=== PATIENT | female | born 1965 | race Caucasian/White ===

== ENCOUNTER → 2017-04-01 | Outpatient (CLI) | payer OTHER ==
[~2017-04-01] MED LIST: DEXT30TA7 PO; ECHINACEA PO; FLUT0.15 NAE; LEVAAER2 INH; MOME200A INH; MTR600X PO; MULT-920 PO; OXYC5TAB PO; PRED20TA PO; ZYRTEC PO
[2017-04-01 11:33] LABS: CHOLESTEROL/HDL RATIO 2.7
== END | disposition home or self-care (01) ==
LOC: C.LABBC 08:33
PROVIDERS: ATTEND Family Medicine
DX: Z00.00 Encounter for general adult medical examination without abnormal findings (principal); Z13.220 Encounter for screening for lipoid disorders

== ENCOUNTER → 2017-10-27 | Outpatient (CLI) | payer OTHER ==
--- NOTE | 2017-10-31 07:49 | MAMMOGRAPHY REPORT ---
BILATERAL DIGITAL SCREENING MAMMOGRAM TOMOSYNTHESIS WITH CAD: 10/27/2017 CLINICAL HISTORY: Routine screening. Patient has no complaints. TECHNIQUE: Breast tomosynthesis in addition to standard 2D mammography was performed. Current study was also evaluated with a Computer Aided Detection (CAD) system. COMPARISON: Comparison is made to exams dated: 05/13/2014 mammogram, 05/11/2013 mammogram, 05/10/2012 m ammogram, 05/04/2011 mammogram, 05/01/2010 mammogram, and 04/30/2009 mammogram. BREAST COMPOSITION: The tissue of both breasts is heterogeneously dense, which may obscure small mas ses. FINDINGS: No suspicious masses, calcifications, or areas of architectural distortion are noted in ei ther breast. There has been no significant interval change compared to prior exams. An asymmetry in the right inferior breast on the MLO view middle depth at the appearance of normal fibroglandular tis torin on the tomosynthesis images. scattered bilateral benign-appearing calcifications do not appear si gnificantly changed compared to prior exams when accounting for differences in mammographic technique between the current and prior exams. Multiple round/oval benign-appearing masses are seen bilateral ly, best seen on the tomosynthesis images, which are considered benign given the multiplicity and jose aterality and likely represent cysts. IMPRESSION: ACR BI-RADS CATEGORY 2: BENIGN There is no mammographic evidence of malignancy. A 1 year screening mammogram is recommended. The pa tient will receive written notification of the results. Approximately 10% of breast cancers are not detected with mammography. A negative mammographic report should not delay biopsy if a clinically suggestive mass is present. Abena Padilla M.D. ah/:10/28/2017 16:00:03 Strip Machine Tender: Samia LUGO(R)(M), letter sent: Normal 1/2 BI-RADS Code: ACR BI-RADS Category 2: Benign
== END | disposition home or self-care (01) ==
LOC: C.MAMM 08:50
PROVIDERS: ATTEND Obstetrics & Gynecology
DX: Z12.31 Encounter for screening mammogram for malignant neoplasm of breast (principal)